=== PATIENT | male | born 1965 | race Caucasian/White ===

== ENCOUNTER 2021-09-11 07:20 | Emergency (ER) | payer OTHER ==
[~2021-09-11] VITALS: Ht 182.9 cm; Wt 90.7 kg
--- NOTE | 2021-09-11 07:26 | NUR ---
To ER bed 14, [facility] [place] [facility] "Abdominal (Hx Hernia)and Shoulder Pain", [id number], breathing even and non labored, connected to monitor
[2021-09-11] MEDS ORDERED: CODEINE/PROMETHAZINE HCL 5 ML UDC PO PRN (08:00)
[2021-09-11] MEDS ORDERED: CODEINE/PROMETHAZINE HCL 5 ML UDC ONE (08:01)
--- NOTE | 2021-09-11 08:07 | NUR ---
TAKEN TO CT
--- NOTE | 2021-09-11 08:15 | NUR ---
COVID SWAB DONE AND SENT TO LAB
[2021-09-11 08:16] LABS: BASOPHILS # (AUTO) 0.1 K/uL (0.0-0.2); BASOPHILS % (AUTO) 0.7 % (0.0-2.0); HEMATOCRIT 35 % (39-51); HEMOGLOBIN 11.2 g/dL (13.5-17.5); MEAN CORPUSCULAR HGB CONC 32 g/dl (31.0-36.0); MEAN CORPUSCULAR VOLUME 84 fL (80-96); MONOCYTES % (AUTO) 12.1 % (2.0-12.0); NEUTROPHILS # (AUTO) 6.1 K/uL (1.8-8.9); NEUTROPHILS % (AUTO) 73.2 % (43.0-81.0); PLATELET COUNT (AUTO) 262 K/uL (150-450); RED BLOOD CELL COUNT(AUTO) 4.16 MIL/uL (4.5-6.0); WHITE BLOOD COUNT (AUTO) 8.3 K/uL (4.3-11.0)
[2021-09-11 08:31] LABS: CALCIUM, SERUM 8.6 mg/dL (8.5-10.1); CREATININE 1.1 mg/dL (0.6-1.3); POTASSIUM 3.8 mmol/L (3.5-5.1)
[2021-09-11 08:41] LABS: ALBUMIN 3.2 g/dL (3.4-5.0); BILIRUBIN,DIRECT 0.5 mg/dL (0.0-0.2); BILIRUBIN,TOTAL 0.8 mg/dL (0.2-1.0); TOTAL PROTEIN, SERUM 7.5 g/dL (6.4-8.2)
[2021-09-11] MEDS ORDERED: GUAI10SY3 PO (10:46)
--- NOTE | 2021-09-11 10:58 | NUR ---
Kenya ruiz in ED - 09/11/21 at 1100 by YUE Patient discharged to home in stable condition. Written and verbal after care instructions given. Patient verbalizes understanding of instruction.
--- NOTE | 2021-09-11 11:00 | NUR ---
Patient given written and verbal discharge instructions. Patient verbalizes understanding of instructions. Patient is ambulatory with steady gait. Refuses offer of jail placement. Patient given list of available shelters in surrounding area.
[2021-09-11 11:01] VITALS: BP 125/75
== END 2021-09-11 11:02 | disposition home or self-care (01) ==
LOC: ER 07:27
DX: J45.909 Unspecified asthma, uncomplicated (principal); K74.60 Unspecified cirrhosis of liver; Z20.822 Contact with and (suspected) exposure to COVID-19; R74.01 Elevation of levels of liver transaminase levels; E87.1 Hypo-osmolality and hyponatremia; Z59.02 Unsheltered homelessness; I51.7 Cardiomegaly; K40.90 Unilateral inguinal hernia, without obstruction or gangrene, not specified as recurrent; R18.8 Other ascites
CPT/HCPCS: 36415; 71045; 74176; 80048; 80074; 80076; 83690; 85025; 87426; 99285; C9803